=== PATIENT | male | born 1960 | race Caucasian/White ===

== ENCOUNTER 2020-10-20 08:20 | Emergency (ER) | payer MEDICAID ==
[~2020-10-20] VITALS: Ht 165.1 cm; Wt 77.0 kg
[2020-10-20 08:26] VITALS: BP 117/61
== END 2020-10-20 09:11 | disposition home or self-care (01) ==
LOC: ER 08:20
DX: R09.81 Nasal congestion (principal)
CPT/HCPCS: 99281

== ENCOUNTER 2023-03-06 17:32 | Emergency (ER) | payer OTHER, MEDICAID ==
[~2023-03-06] VITALS: Ht 165.1 cm; Wt 87.0 kg
[2023-03-06 17:52] VITALS: O2SAT 99
[2023-03-06 18:02] VITALS: BP 128/72; PULSE 67; RESP 17; TEMP 98.9
[2023-03-06] MEDS ORDERED: NAPR-1176 MT (21:04)
== END 2023-03-06 21:51 | disposition home or self-care (01) ==
LOC: ER 17:32
DX: S93.402A Sprain of unspecified ligament of left ankle, initial encounter (principal); X50.1XXA Overexertion from prolonged static or awkward postures, initial encounter; Y93.89 Activity, other specified; Y92.89 Other specified places as the place of occurrence of the external cause; Y99.8 Other external cause status
CPT/HCPCS: 73610; 73630; 99284; Z7610